=== PATIENT | male | born 2005 | race Two or more races ===

== ENCOUNTER 2024-05-17 10:19 | Emergency (ER) | payer BC ==
[~2024-05-17] VITALS: Ht 172.7 cm; Wt 100.0 kg
[2024-05-17 10:51] VITALS: BP 145/96; PULSE 76; RESP 16; TEMP 98; O2SAT 100
[2024-05-17] MEDS ORDERED: CEPH500C PO (11:01)
[2024-05-17] MEDS: cefTRIAXone SOD 1,000 MG VL IM ONE (11:02)
--- NOTE | 2024-05-17 11:04 | ED.PDOC ---
History of Present Illness(SKN HPI Comments A 19 YEAR OLD MALE PRESENTS TO THE ED WITH COMPLAINT OF INSECT BITE. PATIENT REPORTS THAT HE WOKE UP WITH A PUSTULE NOTED TO HIS LEXT AXILLA REGION WITH SOME PAIN AND REDNESS. PATIENT RELAYS THAT IT IS SMALL, BUT HE WANTED IT EXAMINED. PATIENT DENIES FEVER, CHILLS, SHORTNESS OF BREATH, CHEST PAIN, ABDOMINAL PAIN, NAUSEA, VOMITING, HEADACHE, OR OTHER COMPLAINTS. NO OTHER SYMPTOMS OR MODIFYING FACTORS AT THIS TIME. Chief Complaint: Abscess Time Seen by MD: 11:00 History of Present Illness: Nurses Notes, Medications, Allergies Allergies: Coded Allergies: NO KNOWN ALLERGIES (Unverified , 05/17/24) Home Meds Active Scripts Cephalexin Monohydrate (Cephalexin) 500 Mg Cap, 1 CAP PO QID, #32 CAP Prov:SHANTA CARLIN 05/17/24 Information Source: Patient Mode of Arrival: Ambulatory Severity: Mild, Moderate Timing: Hours Duration: Since onset Prehospital treatment: None Location: Other (LEFT AXILLA) Mechanism: Insect Developed: Rash (AND A BUMP ) Object: None Condition of Object: None Retained Foreign Body: No Wound Type: Pustule Immunization Status of Animal: NA Tetanus: UTD History of: None Associated Signs and Symptoms: Redness, Pain Past Medical History PAST MEDICAL HISTORY: Denies Surgical History: Denies all surgeries Family History Family History: Reviewed,noncontributory to illness Social History Smoker: Non-Smoker Alcohol: Denies ETOH Use Drugs: Denies Drug Use Lives In: Home Constitutional: denies: chills, diaphoresis, fatigue, fever, malaise, sweats, weakness, others EENTM: denies: blurred vision, double vision, ear bleeding, ear discharge, ear drainage, ear pain, ear ringing, eye pain, eye redness, hearing loss, mouth pain, mouth swelling, nasal discharge, nose bleeding, nose congestion, nose pain, photophobia, tearing, throat pain, throat swelling, voice changes, others Respiratory: denies: cough, hemoptysis, orthopnea, SOB at rest, shortness of breath, SOB with excertion, stridor, wheezing, others Cardiovascular: denies: chest pain, dizzy spells, diaphoresis, Dyspnea on exertion, edema, irregular heart beat, left arm pain, lightheadedness, palpitations, PND, syncope, others Gastrointestinal: denies: abdomen distended, abdominal pain, blood streaked bowels, constipated, diarrhea, dysphagia, difficulty swallowing, hematemesis, melena, nausea, poor appetite, poor fluid intake, rectal bleeding, rectal pain, vomiting, others Genitourinary: denies: burning, dysuria, flank pain, frequency, hematuria, incontinence, penile discharge, penile sore, pain, testicle pain, testicle swelling, urgency, others Neurological: denies: dizziness, fainting, headache, left sided numbness, left sided weakness, numbness, paresthesia, pre-existing deficit, right sided numbness, right sided weakness, seizure, speech problems, tingling, tremors, weakness, others Musculoskeletal: denies: back pain, gout, joint pain, joint swelling, muscle pain, muscle stiffness, neck pain, others Integumetry: reports: lumps (ON LEFT AXILLA ), others (BUMP TO LEFT AXILLA); denies: bruises, change in color, change in hair/nails, dryness, laceration, lesions, rash, wounds Allergic/Immunocompromised: denies: Difficulty Healing, Frequent Infections, Hives, Itching, others Hematologic/Lymphatic: denies: anemia, blood clots, easy bleeding, easy bruising, swollen glands, others Endocrine: denies: excessive hunger, excessive sweating, excessive thirst, excessive urination, flushing, intolerance to cold, intolerance to heat, unexplained weight gain, unexplained weight loss, others Psychiatric: denies: anxiety, bipolar disorder, depression, hopeless, panic disorder, schizophrenia, sleepless, suicidal, others All Other Systems: Reviewed and Negative Physical Exam General Appearance: No Apparent Distress, Normal HEENT: Normal ENT Inspection, PERRL/EOMI, Pharynx Normal Neck: Full Range of Motion, Non-Tender, Normal, Normal Inspection Respiratory: Chest Non-Tender, Lungs Clear, No Accessory Muscle Use, No Respiratory Distress, Normal Breath Sounds Cardiovascular: No Edema, No JVD, No Murmur, No Gallop, Normal Peripheral Pulses, Regular Rate/Rhythm Breast Exam: Deferred Gastrointestinal: No Organomegaly, Non Tender, No Pulsatile Mass, Normal Bowel Sounds, Soft Genitalia: Deferred Pelvic: Deferred Rectal: Deferred Extremities: No calf tenderness, Normal capillary refill, Normal range of motion, No pedal edema, Tender (WITH A SMALL RED BUMP ON LEFT AXILLA. ) Musculoskeletal : Apperance: Normal Neurologic: Alert, building appraiser II-XII nml as Tested, No Motor Deficits, Normal Affect, Normal Mood, No Sensory Deficits Cerebellar Function: Normal Reflexes: Normal Skin: Dry, Warm, Wounds (A SMALL RED BUMP WITH LOCALIZED REDNESS AND TENDERNESS ON LEFT AXILLA, NO OPEN WOUND AND PUS DRAINAGE. ) Peripheral Pulses: 2+ carotid (R), 2+ carotid (L), 2+ dorsalis pedis (R), 2+ dorsalis pedis (L) Lymphatic: No Adenopathy Was a procedure done? Was a procedure done?: No Differential Diagnosis (INTG) Differential Diagnosis: Insect Envenomation Differential Diagnosis: Abscess, Impetigo, Other (INSECT BITE OF LEFT AXILLA ) X-Ray, Labs, Meds, VS Vital Signs Date Time Temp Pulse Resp B/P (MAP) Pulse Ox O2 Delivery O2 Flow Rate FiO2 05/17/24 10:51 98.0 76 16 145/96 (112) 100 98.0 05/17/24 10:51 76 16 100 Room Air 05/17/24 10:30 98.0 76 16 145/96 (112) 100 Current Medications Medications (Trade) Dose Ordered Sig/Gold Route Start Time Stop Time Status Last Admin Ceftriaxone Sodium (Rocephin) 1,000 mg ONCE ONCE IM 05/17/24 11:00 05/17/24 11:01 DC 05/17/24 11:02 X-Ray, Labs, Meds, VS Comment ROCEPHIN 1GM IM Time of 1ST Reevaluation: 11:30 Reevaluation 1ST: Improved Patient Education/Counseling: Diagnosis, Treatment, Need For Follow Up Family Education/Counseling: Diagnosis, Treatment, Need For Follow Up Medical Screening: No EMC Exist At This Time Departure 1 Departure Time of Disposition: 11:30 Impression: Primary Impression: Nonvenomous insect bite of left axilla Disposition: HOME / SELF CARE / HOMELESS Condition: Stable Additional Instructions: FOLLOW-UP WITH ROUTE SERVICE MANAGER IN 1 TO 2 DAYS. TAKE MEDICATIONS PRESCRIBED. RETURN TO ED FOR ANY NEW OR WORSENING SYMPTOMS. e-Prescriptions Cephalexin Monohydrate (Cephalexin) 500 Mg Cap 1 CAP PO QID, #32 CAP Prov: SHANTA CARLIN 05/17/24 Discharged With: Self Critical Care Note Critical Care Time?: No Stability Stability form required: No Heart Score Heart Score: Heart Score Response (Comments) Value History N/A 0 EKG N/A 0 Age N/A 0 Risk Factors N/A 0 Troponin N/A 0 Total 0 I personally scribed for SHANTA CARLIN ([email or web address]) on 05/17/24 at 11:04. Electronically submitted by Sarmad Calle ([email or web address]). SHANTA CARLIN May 17, 2024 11:04
== END 2024-05-17 11:12 | disposition home or self-care (01) ==
LOC: ER 10:19
DX: S40.862A Insect bite (nonvenomous) of left upper arm, initial encounter (principal); W57.XXXA Bitten or stung by nonvenomous insect and other nonvenomous arthropods, initial encounter; Y93.89 Activity, other specified; Y92.89 Other specified places as the place of occurrence of the external cause; Y99.8 Other external cause status
CPT/HCPCS: 96372; 99283; J0696

== ENCOUNTER 2024-09-03 04:56 | Emergency (ER) | payer BC ==
[~2024-09-03] VITALS: Ht 170.2 cm; Wt 103.0 kg
[~2024-09-03 04:56] MED LIST: CEPH500C PO
--- NOTE | 2024-09-03 05:15 | ED.PDOC ---
History of Present Illness HPI Comments 19-year-old male presents to ER with complaints of flu-like symptoms x one day. Patient reports he has been experiencing intermittent nausea/vomiting/diarrhea and frontal headache x 1 day. He rates his current pain a 5/10. Patient presents to ER with low-grade fever on arrival at 100.9 F, ambulatory, with steady gait, in no distress, denying any known fever prior to arrival to ER and reports positive exposure to sick contacts. Denies cough, sore throat, dizziness, abdominal pain, changes in urination/bm or any further symptoms/complaints Chief Complaint: Flu like Time Seen by MD: 05:02 Primary Care Provider: UNKNOWN Reviewed Notes: Nurses Notes, Medications, Allergies Information Source: Patient Mode of Arrival: Ambulatory Past Medical History PAST MEDICAL HISTORY: Denies Surgical History: Denies all surgeries Family History Family History: Unknown Social History Smoker: Non-Smoker Alcohol: Denies ETOH Use Drugs: Denies Drug Use Lives In: Home Constitutional: See HPI EENTM: No Symptoms Reported Respiratory: No Symptoms Reported Cardiovascular: No Symptoms Reported Gastrointestinal: See HPI Genitourinary: No Symptoms Reported Neurological: No Symptoms Reported Musculoskeletal: No Symptoms Reported Integumentary: No Symptoms Reported Allergic/Immunocompromised: others (DENIES) Hematologic/Lymphatic: No Symptoms Reported Endocrine: No Symptoms Reported Psychiatric: No symptoms Reported Physical Exam General Appearance: No Apparent Distress, Obese HEENT: Normal ENT Inspection, PERRL/EOMI, Pharynx Normal, TMs Normal Neck: Full Range of Motion, Non-Tender, Normal Respiratory: Chest Non-Tender, Lungs Clear, No Accessory Muscle Use, No Respiratory Distress, Normal Breath Sounds Cardiovascular: No Murmur, No Gallop, Tachycardia Breast Exam: Deferred Gastrointestinal: Non Tender, No Pulsatile Mass, Soft Genitalia: Deferred Pelvic: Deferred Rectal: Deferred Extremities: Normal capillary refill, Normal range of motion Neurologic: Alert, medical service representative II-XII nml as Tested, No Motor Deficits, Normal Affect, Normal Mood, No Sensory Deficits Cerebellar Function: Normal Reflexes: Normal Skin: Dry, Normal Color, Warm Lymphatic: No Adenopathy Was a procedure done? Was a procedure done?: No Sedation Sedation?: No Fever Differential Dx Differential Diagnosis: Pneumonia, Sepsis, Other (COVID-19, INFLUENZA) X-Ray, Labs, Meds, VS Vital Signs Date Time Temp Pulse Resp B/P (MAP) Pulse Ox O2 Delivery O2 Flow Rate FiO2 09/03/24 05:17 100.9 09/03/24 05:01 100.9 128 15 130/86 (101) 95 100.9 Lab Test 09/03/24 05:00 Range/Units Influenza Type A Antigen Pending Influenza Type B Antigen Pending SARS-CoV-2 Antigen (Rapid) Pending Current Medications Medications (Trade) Dose Ordered Sig/Gold Route Start Time Stop Time Status Last Admin Acetaminophen (Tylenol Tablet) 650 mg ONCE ONCE PO 09/03/24 05:15 09/03/24 05:16 DC 09/03/24 05:17 Sodium Chloride 1,000 ml @ 1,000 mls/hr Q1H ONCE IV 09/03/24 05:15 09/03/24 06:14 09/03/24 05:26 Ondansetron HCl (Zofran Po) 4 mg ONCE ONCE PO 09/03/24 05:15 09/03/24 05:16 DC 09/03/24 05:18 SWAB RESULTS REVIEWED - NEGATIVE HEP-LOCK IV ORDERED NS 1 LITER IV ORDERED ZOFRAN 4 MG PO ORDERED PATIENT HAD IMPROVEMENT IN SYMPTOMS, TOLERATING P.O. INTAKE WELL AND IN NO DISTRESS PRIOR TO DISCHARGE DIET EDUCATION DISCUSSED ADVISED TO FOLLOW UP WITH PCP IN 1-2 DAYS PATIENT VERBALIZED UNDERSTANDING AND AGREEABLE WITH CURRENT PLAN OF CARE ADVISED TO RETURN TO ER IMMEDIATELY IF SYMPTOMS WORSEN Time of 1ST Reevaluation: 05:14 Reevaluation 1ST: N/A Patient Education/Counseling: Diagnosis, Treatment, Prognosis, Need For Follow Up Family Education/Counseling: No Family Present Departure 1 Departure Time of Disposition: 06:02 Impression: Primary Impression: Viral gastroenteritis Disposition: 01 HOME / SELF CARE / HOMELESS Condition: Stable e-Prescriptions Acetaminophen (Acetaminophen) 500 Mg Tab 500 MG PO Q4HPRN, #30 TAB 0 Refills Prov: LETHA GARCIA 09/03/24 Discharged With: Self Critical Care Note Critical Care Time?: No Stability Stability form required: No Heart Score Heart Score: Heart Score Response (Comments) Value History N/A 0 EKG N/A 0 Age N/A 0 Risk Factors N/A 0 Troponin N/A 0 Total 0 LETHA GARCIA Sep 03, 2024 05:15
[2024-09-03] MEDS: ACETAMINOPHEN 325 MG TAB PO ONE (05:17)
[2024-09-03] MEDS: ONDANSETRON ODT 4 MG TAB PO ONE (05:18)
[2024-09-03] MEDS ORDERED: ACET500T58 PO (05:24)
[2024-09-03] MEDS: SODIUM CHLORIDE 0.9% 1,000 ML IV ONE (05:26)
[2024-09-03] MEDS ORDERED: OSEL75CA5 PO (05:29)
[2024-09-03 06:05] LABS: COVID19 ANTIGEN SOFIA FIA NEGATIVE (NEGATIVE); Rapid Influenza A Negative (Negative); Rapid Influenza B Negative (Negative)
[2024-09-03 06:14] VITALS: BP 130/73; PULSE 106; RESP 18; O2SAT 96
[2024-09-03 06:31] VITALS: TEMP 99.9
== END 2024-09-03 06:31 | disposition home or self-care (01) ==
LOC: EEVIPCON 04:56 → ER 04:56
DX: A08.4 Viral intestinal infection, unspecified (principal); Z20.822 Contact with and (suspected) exposure to COVID-19
CPT/HCPCS: 36415; 87426; 87804; 96360; 99283; J7030; Q0162

== ENCOUNTER 2025-02-22 22:40 | Emergency (ER) | payer BC ==
[~2025-02-22] VITALS: Ht 172.7 cm; Wt 90.0 kg
[~2025-02-22 22:40] MED LIST changes: +ACET500T58 PO
[2025-02-22 22:55] VITALS: BP 137/82; PULSE 62; RESP 16; TEMP 98.2; O2SAT 98
--- NOTE | 2025-02-23 00:21 | DVH ---
CLINICAL INDICATION: thumb dislocation s/p reduction TECHNIQUE: XY L HAND 3V XRAY Comparison: None FINDINGS/IMPRESSION: : There is no evidence of acute fracture or dislocation. Soft tissues are unremarkable.
--- NOTE | 2025-02-23 00:28 | ED.PDOC ---
Back pain HPI HPI Comments PT PRESENTED TO ED CC LEFT THUMB PAIN. PT STATES HE FELL ON HIS THUMB WRONG AND RATES PAIN 9/10. FULL ROM, -NUMBNESS/TINGLING, PT A&OX4. GCS 15, AMBULATORY ON HIS OWN. Chief Complaint: Upper Extremity Time Seen by MD: 22:54 Primary Care Provider: UNKNOWN Reviewed Notes: Nurses Notes, Medications, Allergies Allergies: Coded Allergies: NO KNOWN ALLERGIES (Unverified , 05/17/24) Home Meds Active Scripts Acetaminophen (Acetaminophen) 500 Mg Tab, 500 MG PO Q4HPRN, #30 TAB 0 Refills Prov:LETHA GARCIA 09/03/24 Cephalexin Monohydrate (Cephalexin) 500 Mg Cap, 1 CAP PO QID, #32 CAP Prov:SHANTA CARLIN 05/17/24 Information Source: Patient Mode of Arrival: Ambulatory Past Medical History PAST MEDICAL HISTORY: Denies Surgical History: Denies all surgeries Family History Family History: Unknown Social History Smoker: Non-Smoker Alcohol: Denies ETOH Use Drugs: Denies Drug Use Lives In: Home All Other Systems: Reviewed and Negative (SEE HPI) Physical Exam General Appearance: No Apparent Distress, Normal HEENT: Pharynx Normal Neck: Full Range of Motion, Non-Tender Respiratory: Lungs Clear, No Respiratory Distress, Normal Breath Sounds Cardiovascular: No Murmur, Normal Peripheral Pulses, Regular Rate/Rhythm Breast Exam: Deferred Gastrointestinal: Non Tender, Soft Genitalia: Deferred Pelvic: Deferred Rectal: Deferred Extremities: Normal capillary refill, Normal inspection, Normal range of motion, Non-tender, No pedal edema Musculoskeletal : Location: Left Extremity Location: Thumb (MODERATE TENDERNESS PALPATED OVER PROXIMAL THUMB NO NOTED ANGULATION STRENGTH SENSORY MOTION INTACT CAP REFILL LESS THAN 3 SECONDS.) Apperance: Normal Neurologic: Alert, No Motor Deficits, Normal Affect, Normal Mood, No Sensory Deficits Cerebellar Function: Normal Reflexes: NOT DONE Skin: Dry, Normal Color, Warm Lymphatic: No Adenopathy Was a procedure done? Was a procedure done?: No Back Pain Differential Dx Differential Diagnosis: Fracture, Musculoskeletal Pain X-Ray, Labs, Meds, VS Vital Signs Date Time Temp Pulse Resp B/P (MAP) Pulse Ox O2 Delivery O2 Flow Rate FiO2 02/22/25 22:46 98.2 62 16 137/82 98 98.2 X-Ray, Labs, Meds, VS Comment FINDINGS/IMPRESSION: : There is no evidence of acute fracture or dislocation. Soft tissues are unremarkable. ADVISED TO CONTINUE WITH SPLINT FOR COMFORT [id number] IBUPROFEN NEEDED FOR THE PAIN SWELLING ADVISED ON RICE FOLLOW UP WITH YOUR PCP IN 2-3 DAYS NECESSARY CONSIDER FURTHER IMAGING SUCH MRI OR REPEAT X-RAY IF SYMPTOMS PERSIST. RETURN PRECAUTIONS GIVEN PATIENT INDICATES UNDERSTANDING AGREES WITH DISCHARGE PLAN OF CARE. Time of 1ST Reevaluation: 22:54 Reevaluation 1ST: Unchanged Time of 2ND Reevaluation: 00:25 Reevaluation 2ND: Improved Patient Education/Counseling: Diagnosis, Treatment, Prognosis, Need For Follow Up Family Education/Counseling: No Family Present SEPSIS Sepsis Screen Date sepsis recognized/suspect: Feb 22, 2025 Time Sepsis recognized/suspect: 2245 Recent Procedure: No On Antibiotic Therapy: No Respiratory Rate >20: No Heart Rate >90: No Temp<36 C (96.8 F) or >38.3 C: No SBP <90 or MAP <65 mmHG: No New Acute Mental Status Change: No Is the patient on CPAP, BIPAP,: No Physician Orders L Hand 3v Xray (02/22/25 22:54) Vital Signs Date Time Temp Pulse Resp B/P (MAP) Pulse Ox O2 Delivery O2 Flow Rate FiO2 02/22/25 22:46 98.2 62 16 137/82 98 98.2 Departure 1 Departure Time of Disposition: 00:25 Impression: Primary Impression: Dislocated thumb Qualified Codes: S63.105A - Unspecified dislocation of left thumb, initial encounter Disposition: HOME / SELF CARE / HOMELESS Condition: Stable Discharged With: Self Critical Care Note Critical Care Time?: No Stability Stability form required: RENO Newman Feb 23, 2025 00:28
== END 2025-02-23 00:36 | disposition home or self-care (01) ==
LOC: ER 22:40 → EEVIPCON 22:40 → ER 02-23 00:36
DX: S63.105A Unspecified dislocation of left thumb, initial encounter (principal); X58.XXXA Exposure to other specified factors, initial encounter; Y93.89 Activity, other specified; Y92.89 Other specified places as the place of occurrence of the external cause; Y99.8 Other external cause status
CPT/HCPCS: 73130

== ENCOUNTER 2025-03-03 10:58 | Emergency (ER) | payer BC ==
[~2025-03-03] VITALS: Ht 165.1 cm; Wt 90.1 kg
[2025-03-03] MEDS ORDERED: AUG875T PO (11:31)
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
[2025-03-03] MEDS: AMOXICILLIN/CLAVUL 875 MG TAB PO ONE (11:39)
[2025-03-03] MEDS: TETANUS-DIPTH-ACEL PERTUSSIS 0.5ML SYR Tdap IM ONE (11:51)
[2025-03-03 12:10] VITALS: BP 136/88; PULSE 78; RESP 16; TEMP 98.3; O2SAT 97
[2025-03-03 12:56] LABS: Hepatitis B Surface Antigen Negative (Negative)
== END 2025-03-03 12:13 | disposition home or self-care (01) ==
LOC: EEVIPCON 10:58 → ER 10:58
DX: S51.831A Puncture wound without foreign body of right forearm, initial encounter (principal); R56.9 Unspecified convulsions; Y04.1XXA Assault by human bite, initial encounter; Y93.89 Activity, other specified; Y92.89 Other specified places as the place of occurrence of the external cause; Y99.8 Other external cause status
CPT/HCPCS: 36415; 86703; 86706; 86803; 87340; 90471